=== PATIENT | male | born 1965 | race Caucasian/White ===

== ENCOUNTER → 2022-03-28 | Outpatient (REF) | payer OTHER | LOC: M SFHCDERM 17:18 | PROVIDERS: ATTEND Physician Assistant | DX: C44.309 Unspecified malignant neoplasm of skin of other parts of face (principal) ==

== ENCOUNTER → 2022-12-14 | Outpatient (REF) | payer OTHER | LOC: M SFHCDERM 12-15 18:18 | PROVIDERS: ATTEND Dermatology | DX: L57.0 Actinic keratosis (principal) ==